=== PATIENT | male | born 1950 | race Caucasian/White ===

== ENCOUNTER 2019-09-22 22:55 | Emergency (ER) | payer OTHER ==
[~2019-09-22] VITALS: Ht 167.6 cm; Wt 78.9 kg
[2019-09-22] MEDS ORDERED: LEVOTHYROXINE25 MCG (23:18)
== END 2019-09-23 09:15 | disposition home or self-care (01) ==
LOC: ER 22:55
DX: N20.1 Calculus of ureter (principal)

== ENCOUNTER 2019-09-25 06:59 | Emergency (ER) | payer OTHER ==
[~2019-09-25] VITALS: Ht 167.6 cm; Wt 78.9 kg
[~2019-09-25 06:59] MED LIST: LEVOTHYROXINE25 MCG
[2019-09-25] MEDS ORDERED: LEVAQUIN500 MG PO (07:25)
[2019-09-25] MEDS ORDERED: KETO10TA2 PO (07:25)
== END 2019-09-25 10:40 | disposition home or self-care (01) ==
LOC: ER 06:59
DX: N20.1 Calculus of ureter (principal)